=== PATIENT | male | born 1985 | race American Indian/Alaskan Native ===

== ENCOUNTER 2022-02-22 18:06 | Emergency (ER) | payer OTHER ==
[2022-02-22] MEDS ORDERED: diazePAM 10 MG/2 ML SYRINGE IV ONE (18:40)
[2022-02-22] MEDS ORDERED: MORPHINE 4 MG/1 ML INJ IV ONE (18:40)
[2022-02-22] MEDS ORDERED: SODIUM CHLORIDE 0.9% 1000 ML 1,000 ML IV ONE (18:40)
--- NOTE | 2022-02-22 18:44 | Emergency Department Report ---
ED General Adult HPI - General Chief complaint: Abdominal Pain Stated complaint: ABD PAIN PUI?: No Time Seen by Provider: 02/22/22 18:28 Source: patient, EMS Mode of arrival: Stretcher Limitations: No Limitations - History of Present Illness Initial comments: Pleasant 36-year-old male with medical history of hypertension and also tachycardia who has had a history of appendectomy came in today with concerns of left lower quadrant abdominal pain. According the patient a year ago he was diagnosed with some sort of mass in the left lower quadrant as well but did not want to do a biopsy at that time. Patient denies any other symptoms such as fever chill night sweat dizziness blurred vision lightheadedness headache tinnitus ear pain runny nose sore throat loss of taste loss of smell chest pain palpitation short breath cough nausea vomiting diarrhea dysuria myalgia arthralgia new rash he will call intolerance. Patient did mention that he his last problem was about 3 days ago. Patient denies any color change to his sto ol. Severity scale (0 -10): 10 - Related Data Previous Rx's Medication Instructions Recorded Last Taken Type Ketorolac [Toradol] 10 mg PO Q6H PRN #6 02/22/22 Unknown Rx Ondansetron [Zofran Oral Liq] 4 mg PO Q8H 3 Days #12 oralsyr 02/22/22 Unknown Rx Allergies Allergy/AdvReac Type Severity Reaction Status Date / Time Iodine and Iodide Containing Allergy Anaphylaxis Verified 02/22/22 18:18 Produc peanut Allergy Anaphylaxis Verified 02/22/22 18:18 shellfish derived Allergy Anaphylaxis Verified 02/22/22 18:18 tomato Allergy Anaphylaxis Verified 02/22/22 18:18 ED Review of Systems ROS: Stated complaint: ABD PAIN Other details as noted in HPI Comment: All other systems reviewed and negative Constitutional: no symptoms reported Eyes: as per HPI ENT: as per HPI Respiratory: no symptoms reported Cardiovascular: as per HPI Endocrine: no symptoms reported Gastrointestinal: abdominal pain, constipation. denies: nausea, vomiting, diarrhea, hematemesis, melena, hematochezia Genitourinary: dysuria Skin: as per HPI Neurological: as per HPI Psychiatric: as per HPI Hematological/Lymphatic: as per HPI ED Past Medical Hx - Past Medical History Previous Medical History?: Yes Hx Hypertension: Yes - Medications Home Medications: Home Medications Medication Instructions Recorded Confirmed Last Taken Type Ketorolac [Toradol] 10 mg PO Q6H PRN #6 02/22/22 Unknown Rx Ondansetron [Zofran Oral Liq] 4 mg PO Q8H 3 Days #12 oralsyr 02/22/22 Unknown Rx ED Physical Exam - General Limitations: No Limitations General appearance: other (APPEAR TO BE IN COMFORTABLE) - Eye Eye exam: Present: normal appearance, PERRL, EOMI Pupils: Present: normal accommodation - ENT ENT exam: Present: normal exam, mucous membranes moist - Neck Neck exam: Present: normal inspection, full ROM - Respiratory Respiratory exam: Present: normal lung sounds bilaterally - Cardiovascular Cardiovascular Exam: Present: normal rhythm, tachycardia, normal heart sounds - GI/Abdominal GI/Abdominal exam: Present: soft, tenderness, diminished bowel sounds. Absent: guarding, rebound, rigid - Extremities Exam Extremities exam: Present: normal inspection, full ROM, normal capillary refill - Back Exam Back exam: Present: normal inspection, full ROM - Neurological Exam Neurological exam: Present: alert, oriented X3, CN II-XII intact - Psychiatric Psychiatric exam: Present: normal affect, normal mood - Skin Skin exam: Present: normal color ED Course Vital Signs 02/22/22 02/22/22 02/22/22 18:12 18:31 18:33 Temperature 98 F Pulse Rate 120 H 109 H Respiratory 18 19 Rate Blood Pressure Blood Pressure 152/88 146/109 [Left] O2 Sat by Pulse 97 98 98 Oximetry 02/22/22 02/22/22 02/22/22 18:34 18:45 19:01 Temperature Pulse Rate 113 H 110 H Respiratory 13 17 Rate Blood Pressure 146/109 158/101 Blood Pressure [Left] O2 Sat by Pulse 98 97 98 Oximetry 02/22/22 02/22/22 02/22/22 19:15 19:31 19:46 Temperature Pulse Rate 99 H 104 H 105 H Respiratory 19 18 18 Rate Blood Pressure 158/101 159/106 159/106 Blood Pressure [Left] O2 Sat by Pulse 98 96 96 Oximetry 02/22/22 02/22/22 02/22/22 20:03 20:15 20:31 Temperature Pulse Rate 108 H 104 H 112 H Respiratory 22 17 Rate Blood Pressure Blood Pressure [Left] O2 Sat by Pulse 98 98 97 Oximetry 07/18/22 07/18/22 07/18/22 20:45 21:01 21:15 Temperature Pulse Rate 112 H 105 H 101 H Respiratory 13 22 18 Rate Blood Pressure 159/106 159/106 159/106 Blood Pressure [Left] O2 Sat by Pulse 97 99 97 Oximetry 02/22/22 02/22/22 02/22/22 21:31 21:45 22:01 Temperature Pulse Rate 103 H 97 H 102 H Respiratory 18 21 19 Rate Blood Pressure 159/106 159/106 159/106 Blood Pressure [Left] O2 Sat by Pulse 95 96 96 Oximetry 02/22/22 02/22/22 02/22/22 22:15 22:31 22:45 Temperature Pulse Rate 127 H 102 H 92 H Respiratory 20 17 22 Rate Blood Pressure 159/106 159/106 159/106 Blood Pressure [Left] O2 Sat by Pulse 97 96 95 Oximetry 02/22/22 02/22/22 23:01 23:15 Temperature Pulse Rate 102 H 96 H Respiratory 17 20 Rate Blood Pressure 159/106 159/106 Blood Pressure [Left] O2 Sat by Pulse 95 97 Oximetry - Reevaluation(s) Reevaluation #1: 02/22/22 23:[address] LEON STATES NOT SURGICAL AND WOULD LIKE ME TO GET IN TOUCH WITH GI. SPOKE TO DR. CASTILLO AND STATES ITS DUE TO PANCREATITIS IN THE PAST LIKELY FROM ALCHOL WHICH PATIENT ADMIT USED TO DRINK A LOT OF ALCOHOL. WILL GIVE PAIN MEDICATION FOR SYMPTOMATIC CONTROL. INFORMED TO FOLLOW UP W/ PCP WITHIN 3 DAYS. RETURN IF ANY NEW SYMPTOMS OR WORSEN OF SYMPTOEMS. ED Medical Decision Making - Lab Data Result diagrams: 02/22/22 18:50 02/22/22 18:50 Critical care attestation.: If time is entered above; I have spent that time in minutes in the direct care of this critically ill patient, excluding procedure time. ED Disposition Clinical Impression: Pancreatic pseudocyst, Abdominal pain Disposition: 01 HOME / SELF CARE / HOMELESS Is pt being admited?: No Does the pt Need Aspirin: No Condition: Stable Instructions: Abdominal Pain, Adult, [id number] Additional Instructions: Make a follow-up appointment with your primary care provider to be seen within 3 days for further outpatient evaluation. In the meantime take the pain medication as prescribed for you. Prescriptions: Ketorolac [Toradol] 10 mg PO Q6H PRN #6 PRN Reason: Pain Ondansetron [Zofran Oral Liq] 4 mg PO Q8H 3 Days #12 oralsyr Time of Disposition: 23:53
[2022-02-22 19:15] LABS: Hematocrit 38.1 % (35.5-45.6); Mean Corpuscular HGB Conc 34 % (32-34); Mean Corpuscular Volume 98 fl (84-94); Platelet Count 222 K/mm3 (140-440); Red Cell Distribution Width 12.9 % (13.2-15.2)
[2022-02-22 19:44] LABS: Alanine Aminotransferase 19 units/L (7-56); Albumin 4.5 g/dL (3.9-5); BUN/Creatinine Ratio 9; Blood Urea Nitrogen 8 mg/dL (9-20); Calcium 9.5 mg/dL (8.4-10.2); Hemolysis Index 16
--- NOTE | 2022-02-22 20:25 | Cat Scan Report ---
CT abdomen pelvis w con INDICATION / CLINICAL INFORMATION: GENERALIZED ABD PAIN. TECHNIQUE: Axial CT imaging of abdomen and pelvis was obtained with 100 mL of Omnipaque 300 contrast. Coronal an d sagittal reformatted imaging obtained and reviewed. All CT scans at this location are performed us ing CT dose reduction for ALARA by means of automated exposure control. COMPARISON: None available. FINDINGS: CT abdomen with contrast demonstrates normal appearance of the liver, spleen, pancreas, kidneys, and adrenal glands. Gallbladder contains several small gallstones but does not appear to be acutely infla med. Abdominal aorta is unremarkable. Within the left upper abdomen there are numerous small cystic masses not demonstrating any enhancemen t. They are most likely multiple peripancreatic pseudocysts. Although many of them are small or no gr eater than 5 cm, as a whole, the area of involvement extends approximately 14 cm in diameter and appr oximately [address] pelvis with contrast does not demonstrate any mass, free fluid, or focal inflammatory process. I b elieve the appendix has been surgically removed. GI tract is grossly unremarkable other than mild gas eous prominence of the small and large bowel. There is no mechanical bowel obstruction or suggestion of enteritis. Visualized lung bases are clear. No acute osseous abnormality noted. IMPRESSION: 1. Numerous cystic nonenhancing masses are seen throughout the left upper quadrant primarily adjacent to the pancreatic tail and within the splenic hilum. The appearance is most likely due to multiple p eripancreatic pseudocysts. CT-guided percutaneous drainage and/or biopsy could be easily performed if clinically warranted. 2. Cholelithiasis. 3. Mild gaseous distention of small and large bowel probably related to mild ileus. No evidence of me chanical bowel obstruction. Signer Name: Tete Elizabeth MD Signed: 02/22/2022 8:21 PM Workstation Name: [id number]
[2022-02-22] MEDS ORDERED: MORPHINE 2 MG/1 ML INJ IV ONE (22:55)
[2022-02-22] MEDS ORDERED: MORPHINE 2 MG/1 ML INJ ONE (22:55)
[2022-02-22 23:18] VITALS: BP 159/106
[2022-02-22] MEDS ORDERED: KETOROLAC 30 MG/1 ML INJ IV ONE (23:51)
== END 2022-02-23 00:43 | disposition home or self-care (01) ==
LOC: ED 18:06
DX: K86.3 Pseudocyst of pancreas (principal); R10.31 Right lower quadrant pain; I10 Essential (primary) hypertension; Z91.02 Food additives allergy status; Z91.010 Allergy to peanuts; Z91.013 Allergy to seafood; Z79.899 Other long term (current) drug therapy
CPT/HCPCS: 36415; 74177; 80053; 82140; 83690; 83735; 85027; 96361; 96374; 96375; 99284; J2270; J3360; J7030; Q9967

== ENCOUNTER 2022-02-23 21:21 | Emergency (ER) | payer OTHER ==
[2022-02-24] MEDS ORDERED: methylPREDNISolone Sod Succinate 125 MG/2 ML INJ IV ONE (12:09)
[2022-02-24] MEDS ORDERED: MORPHINE 4 MG/1 ML INJ IV ONE (12:09)
--- NOTE | 2022-02-24 12:14 | Emergency Department Report ---
ED Abdominal Pain HPI - General Stated Complaint: LOWER LT SIDE ABD PAIN Time Seen by Provider: 02/24/22 12:00 Source: patient Mode of arrival: Ambulatory Limitations: No Limitations - History of Present Illness Initial Comments: Patient is a 36-year-old male returning to the emergency department with complaint of persistent abdominal pain. Was seen here on 02/22/[address] revealing pancreatic pseudocyst. General surgery and GI were consulted. No immediate intervention required. Patient was given pain medication and discharged with instructions to follow-up with his PCP within 3 days. States his symptoms are worsening. - Related Data Previous Rx's Medication Instructions Recorded Last Taken Type Ketorolac [Toradol] 10 mg PO Q6H PRN #6 02/22/22 Unknown Rx Ondansetron [Zofran Oral Liq] 4 mg PO Q8H 3 Days #12 oralsyr 02/22/22 Unknown Rx oxyCODONE /ACETAMINOPHEN [Percocet 1 tab PO Q6HR PRN #12 tablet 02/24/22 Unknown Rx 5/325] predniSONE [Deltasone] 40 mg PO QDAY #10 tab 02/24/22 Unknown Rx Allergies Allergy/AdvReac Type Severity Reaction Status Date / Time Iodine and Iodide Containing Allergy Anaphylaxis Verified 02/22/22 18:18 Produc peanut Allergy Anaphylaxis Verified 02/22/22 18:18 shellfish derived Allergy Anaphylaxis Verified 02/22/22 18:18 tomato Allergy Anaphylaxis Verified 02/22/22 18:18 ED Review of Systems ROS: Stated complaint: LOWER LT SIDE ABD PAIN Other details as noted in HPI Constitutional: denies: chills, fever Respiratory: denies: cough, shortness of breath, wheezing Cardiovascular: denies: chest pain, palpitations Gastrointestinal: abdominal pain. denies: nausea, vomiting Musculoskeletal: denies: back pain, joint swelling, arthralgia Skin: denies: rash, lesions Neurological: denies: headache, weakness, paresthesias Psychiatric: denies: anxiety, depression ED Past Medical Hx - Past Medical History Previous Medical History?: Yes Hx Hypertension: Yes Hx Asthma: Yes - Surgical History Past Surgical History?: Yes Hx Appendectomy: Yes Additional Surgical History: L elbow screw, R knee scope, T&A - Social History Smoking Status: Current Every Day Smoker Substance Use Type: None - Medications Home Medications: Home Medications Medication Instructions Recorded Confirmed Last Taken Type Ketorolac [Toradol] 10 mg PO Q6H PRN #6 02/22/22 Unknown Rx Ondansetron [Zofran Oral Liq] 4 mg PO Q8H 3 Days #12 oralsyr 02/22/22 Unknown Rx oxyCODONE /ACETAMINOPHEN [Percocet 1 tab PO Q6HR PRN #12 tablet 02/24/22 Unknown Rx 5/325] predniSONE [Deltasone] 40 mg PO QDAY #10 tab 02/24/22 Unknown Rx ED Physical Exam - General Limitations: No Limitations General appearance: alert, in no apparent distress - Head Head exam: Present: atraumatic, normocephalic - Respiratory Respiratory exam: Present: normal lung sounds bilaterally. Absent: respiratory distress - Cardiovascular Cardiovascular Exam: Present: regular rate, normal rhythm, normal heart sounds - GI/Abdominal GI/Abdominal exam: Present: soft, tenderness (Epigastric). Absent: distended - Rectal Rectal exam: Present: deferred - Extremities Exam Extremities exam: Present: normal inspection - Neurological Exam Neurological exam: Present: alert, oriented X3 - Psychiatric Psychiatric exam: Present: normal affect, normal mood - Skin Skin exam: Present: other (Erythematous facial rash (patient states this occurred after receiving IV contrast)) ED Course Vital Signs 02/23/22 02/24/22 02/24/22 22:22 12:07 12:15 Temperature 99.9 F H Pulse Rate 58 L 82 105 H Respiratory 18 18 17 Rate Blood Pressure 131/94 142/104 Blood Pressure [Left] O2 Sat by Pulse 100 98 97 Oximetry 02/24/22 02/24/22 02/24/22 12:19 12:31 12:45 Temperature 99.0 F Pulse Rate 102 H 98 H 103 H Respiratory 15 17 17 Rate Blood Pressure 142/104 142/104 Blood Pressure 142/104 [Left] O2 Sat by Pulse 97 96 98 Oximetry 02/24/22 02/24/22 02/24/22 13:01 13:15 13:31 Temperature Pulse Rate 100 H 95 H 92 H Respiratory 15 15 16 Rate Blood Pressure 142/114 142/114 142/114 Blood Pressure [Left] O2 Sat by Pulse 96 97 97 Oximetry 02/24/22 02/24/22 02/24/22 13:45 14:01 14:15 Temperature Pulse Rate 89 92 H 88 Respiratory 13 17 16 Rate Blood Pressure 142/114 129/92 129/92 Blood Pressure [Left] O2 Sat by Pulse 97 97 97 Oximetry 02/24/22 02/24/22 02/24/22 14:31 14:45 15:01 Temperature Pulse Rate 90 84 85 Respiratory 17 16 14 Rate Blood Pressure 129/92 129/92 136/98 Blood Pressure [Left] O2 Sat by Pulse 96 97 97 Oximetry ED Medical Decision Making - Lab Data Result diagrams: 02/24/22 12:41 02/24/22 12:41 - Medical Decision Making Labs are grossly unremarkable. Patient given IV morphine and Dilaudid for pain. I discussed case with Dr. Laguerre. States that patient would need to follow-up with a pancreatic specialist for further management. On reassessment patient states his pain is much improved. I informed him of Dr. Ramirez recommendations. Will discharge home with Rx for Percocet. Critical care attestation.: If time is entered above; I have spent that time in minutes in the direct care of this critically ill patient, excluding procedure time. ED Disposition Clinical Impression: Pancreatic pseudocyst, Abdominal pain Disposition: 01 HOME / SELF CARE / HOMELESS Is pt being admited?: No Condition: Stable Instructions: Abdominal Pain, Adult Additional Instructions: You will need to follow-up with a specialized pancreatic surgeon at your earliest convenience for further management. Please take pain medications as prescribed. Please do not hesitate to return if your symptoms worsen. Time of Disposition: 15:19
[2022-02-24] MEDS ORDERED: HYDROmorphone 1 MG/1 ML INJ IV ONE (14:08)
[2022-02-24 14:20] LABS: Basophils % (Auto) 0.5 % (0.0-1.8); Eosinophils % (Auto) 0.5 % (0.0-4.3); Hematocrit 40.5 % (35.5-45.6); Hemoglobin 13.9 gm/dl (11.8-15.2); Lymphocytes # (Auto) 1.3 K/mm3 (1.2-5.4); Lymphocytes % (Auto) 20.8 % (13.4-35.0); Mean Corpuscular HGB Conc 34 % (32-34); Mean Corpuscular Volume 98 fl (84-94); Monocytes # (Auto) 0.7 K/mm3 (0.0-0.8); Monocytes % (Auto) 11.9 % (0.0-7.3); Platelet Count 205 K/mm3 (140-440); Red Blood Count 4.15 M/mm3 (3.65-5.03); Red Cell Distribution Width 12.9 % (13.2-15.2)
[2022-02-24 14:30] LABS: Alanine Aminotransferase 19 units/L (7-56); Albumin 4.4 g/dL (3.9-5); BUN/Creatinine Ratio 10; Bilirubin,Direct < 0.2 mg/dL (0-0.2); Blood Urea Nitrogen 8 mg/dL (9-20); Calcium 9.1 mg/dL (8.4-10.2); Hemolysis Index 8
[2022-02-24 15:12] VITALS: BP 136/98
[2022-02-24 15:41] LABS: Mucus,Urine FEW /HPF
[2022-02-24 15:53] LABS: Bilirubin,Urine Negative (Negative); Blood,Urine Negative (Negative); Color,Urine Yellow (Yellow)
== END 2022-02-24 17:15 | disposition home or self-care (01) ==
LOC: ED 21:21
DX: K86.3 Pseudocyst of pancreas (principal); R10.9 Unspecified abdominal pain; I10 Essential (primary) hypertension; J45.909 Unspecified asthma, uncomplicated; Z90.89 Acquired absence of other organs; Z98.890 Other specified postprocedural states; F17.290 Nicotine dependence, other tobacco product, uncomplicated; Z91.010 Allergy to peanuts; Z91.013 Allergy to seafood; Z91.018 Allergy to other foods; Z91.041 Radiographic dye allergy status
CPT/HCPCS: 36415; 80048; 80076; 81001; 83690; 85025; 96374; 96375; 99283; J1170; J2270; J2930